=== PATIENT | male | born 1965 | race Caucasian/White ===

== ENCOUNTER 2018-11-14 08:54 | Outpatient (CLI) | payer OTHER ==
[~2018-11-14] VITALS: Ht 172.7 cm; Wt 101.2 kg
[2018-11-14] MEDS ORDERED: ASPI-586 PO (09:23)
[2018-11-14] MEDS ORDERED: IBUP-1780 PO (09:23)
[2018-11-14] MEDS ORDERED: HYDR12.56 PO (09:23)
[2018-11-14] MEDS ORDERED: LOSA100T8 PO (09:23)
[2018-11-14] MEDS ORDERED: ATOR40TA70 PO (09:23)
[2018-11-14] MEDS ORDERED: ACET-93 PO (09:23)
[2018-11-14] MEDS ORDERED: PANT40TA3 PO (09:23)
== END 2018-11-14 09:30 | disposition home or self-care (01) ==
LOC: PREOP 08:54
PROVIDERS: ATTEND Orthopaedic Surgery
DX: Z01.818 Encounter for other preprocedural examination (principal)

== ENCOUNTER 2018-11-16 08:11 | Day surgery (SDC) | payer OTHER ==
--- NOTE | 2018-11-14 06:26 | HISTORY AND PHYSICAL ---
DATE OF SERVICE: ADMISSION HISTORY AND PHYSICAL DATE OF ADMISSION: This will be for outpatient surgery on ___ for right distal biceps repair. HISTORY OF PRESENT ILLNESS: The patient is a 53-year-old right hand dominant gentleman who injured his right elbow while lifting plywood at work. He felt and heard a pop. He reports weakness with supination of the forearm and with elbow flexion. He denies antecedent pain. He denies paresthesias. REVIEW OF SYSTEMS: No chest pain and no shortness of breath and no dysuria. PAST MEDICAL HISTORY: Hypercholesterolemia and sleep apnea. PAST SURGICAL HISTORY: Appendectomy, right ankle replacement, eye, right shoulder free flaps in the bilateral forearms. FAMILY HISTORY: Significant for ischemic heart disease. PRIMARY CARE PROVIDER: In [place]. MEDICATIONS: Aspirin, Protonix, atorvastatin, acetaminophen, ibuprofen, Dilaudid, hydrochlorothiazide, losartan. ALLERGIES: OxyContin. SOCIAL HISTORY: The patient drinks alcohol socially and denies tobacco use. RADIOGRAPHS: Reveal mild degenerative change of his right elbow with no acute changes. PHYSICAL EXAMINATION: GENERAL: The patient is well developed, well nourished, no acute distress. HEENT: Normocephalic, atraumatic. Pupils are equal, round and reactive to light. Oropharynx is clear. NECK: Supple, no lymphadenopathy. LUNGS: Clear to auscultation bilaterally. HEART: Regular rate and rhythm. ABDOMEN: Soft, nontender and nondistended. EXTREMITIES: The right elbow demonstrates a deformity of the distal biceps, which has moved proximally. His biceps is absent from his antecubital fossa. He has marked weakness with forearm supination and moderate weakness with elbow flexion. Sensation is intact distally. He has a well-healed incision on the volar aspect of his right forearm centrally. IMPRESSION: Right distal biceps disruption. PLAN: Right distal biceps repair. We discussed the risks, benefits, options, ramifications and recovery. He understands and wished to proceed. Job ID: [id number] DocumentID: [id number] Dictated Date: 11/03/2018 11:02:39 Bankruptcy Legal Assistant Date: 11/03/2018 11:59:00 Dictated By: JACKIE STERLING MD
[~2018-11-16] VITALS: Ht 172.7 cm; Wt 98.1 kg
[~2018-11-16 08:11] MED LIST: ACET-93 PO; ASPI-586 PO; ATOR40TA70 PO; HYDR12.56 PO; IBUP-1780 PO; LOSA100T8 PO; PANT40TA3 PO
[2018-11-16] MEDS ORDERED: BUPIVACAINE 0.5% 30 ML (SENSORCAINE) VIAL ONE (08:12)
[2018-11-16 08:15] VITALS: BP 132/71
[2018-11-16] MEDS ORDERED: ceFAZolin INJECTION 1,000 MG in NS (IVPB) 50 ML IV ONE (08:30)
[2018-11-16] MEDS ORDERED: LIDOCAINE PF 2% 5 ML (XYLOCAINE) VIAL ONE (08:35)
[2018-11-16] MEDS ORDERED: proPOfol 200 MG/20 ML (DIPRIVAN) VIAL IV ONE ×2 (08:35→09:10)
[2018-11-16] MEDS ORDERED: SEVOFLURANE (ULTANE) 15 ML INHAL SOLN ONE ×6 (08:37→10:23)
[2018-11-16] MEDS ORDERED: MIDAZOLAM 2 MG/2 ML (VERSED) VIAL ONE (08:38)
[2018-11-16] MEDS ORDERED: fentaNYL INJECTION 100 MCG/2 ML AMP ONE ×2 (08:38→09:52)
[2018-11-16] MEDS: LACTATED RINGERS 1,000 ML IV PRN ×2 (08:50→11:00)
--- NOTE | 2018-11-16 08:57 | Progress Note-Pre Operative ---
Pre-Operative Progress Note H&P Reviewed The H&P was reviewed, patient examined and no changes noted. Date Seen by Provider: Nov 16, 2018 Time Seen by Provider: 08:30 Date H&P Reviewed: Nov 16, 2018 Time H&P Reviewed: 08:29 Pre-Operative Diagnosis: right distal biceps tear JACKIE STERLING MD Nov 16, 2018 08:57
--- NOTE | 2018-11-16 08:58 | Progress Note-Post Operative ---
Post-Operative Progess Note Surgeon (s)/Corporate Travel Manager (s) Surgeon JACKIE STERLING MD Corporate Travel Manager: Gallo Bee Pre-Operative Diagnosis right distal biceps tear Post-Operative Diagnosis right distal biceps tear Procedure & Operative Findings Date of Procedure 11/16/18 Procedure Performed/Findings right distal biceps repair Anesthesia Type GETA Estimated Blood Loss Estimated blood loss (mL): minimal Specimens/Packing Specimens Removed none Packing: none JACKIE STERLING MD Nov 16, 2018 08:57
[2018-11-16] MEDS ORDERED: HYDROcodone/APAP 7.5 MG/325 MG (LORTAB, LORCET PLUS) TABLET PO PRN (09:00)
[2018-11-16] MEDS ORDERED: ONDANSETRON 4 MG/2 ML (SDV) Z0FRAN ONE (09:10)
[2018-11-16] MEDS ORDERED: DEXAMETHASONE 10 MG/ML (DECADRON) 1 ML VIAL ONE (09:10)
[2018-11-16] MEDS ORDERED: ONDANSETRON 4 MG/2 ML (SDV) Z0FRAN IVP PRN (10:45)
[2018-11-16] MEDS ORDERED: morphine INJ 10 MG/ML 1ML (SYR OR VIAL) IVP ONE (10:45)
[2018-11-16] MEDS ORDERED: HYDROmorphone 2 MG/ML VIAL (DILAUDID) IV ONE (10:45)
[2018-11-16 11:42] VITALS: BP 147/75
--- NOTE | 2018-11-16 11:54 | Anesthesia-General Post-Op ---
General Patient Condition Mental Status/LOC: Same as Preop Cardiovascular: Satisfactory Nausea/Vomiting: Absent Respiratory: Satisfactory Pain: Controlled Complications: Absent Post Op Complications Complications None Follow Up Care/Instructions Patient Instructions None needed. Anesthesia/Patient Condition Patient Condition Patient is doing well, no complaints, stable vital signs, no apparent adverse anesthesia problems. No complications reported per nursing. ANSELMO VILLA CRNA Nov 16, 2018 11:54
[2018-11-16] MEDS ORDERED: HYDR-3812 PO (12:04)
[2018-11-16 12:12] VITALS: BP 151/75
[2018-11-16 12:39] VITALS: BP 134/89
--- NOTE | 2018-11-16 15:06 | OPERATIVE REPORT ---
DATE OF SERVICE: 11/16/2018 PREOPERATIVE DIAGNOSIS: Right distal biceps tendon tear. POSTOPERATIVE DIAGNOSIS: Right distal biceps tendon tear. PROCEDURE: Right distal biceps tendon repair. SURGEON: Tomi Sterling MD W[employer] DYEING VAT TENDER: Gallo Lipscomb, who assisted throughout the procedure and closed the incision. ANESTHESIA: General endotracheal by Dr. Jones. TOURNIQUET TIME: 58 minutes at 250 mmHg. ESTIMATED BLOOD LOSS: Minimal. DRAINS: None. COMPLICATIONS: None. POSTOPERATIVE PLAN: Splint for 2 weeks with converting to brace for an additional 2 to 4 weeks. The patient was transferred to the recovery room awake and in stable condition. STATEMENT OF MEDICAL NECESSITY: The patient is a 53-year-old right hand dominant gentleman, who sustained a work injury 3 weeks ago. He fell and heard a pop in his arm. On exam, he had marked weakness with elbow flexion and forearm supination. He was tender in his antecubital fossa and his biceps tendon was lax. It was felt that he likely sustained a distal biceps disruption and due to functional impairment and failure to improve, the patient elected to proceed with surgical intervention. DESCRIPTION OF PROCEDURE: After risks and benefits of procedure were discussed and questions were answered, an informed consent was signed and placed on chart, the operative site was confirmed in the preoperative holding area, initialed by the surgeon. The patient was then transferred to the operating room and after adequate levels of general endotracheal anesthetic were obtained, a timeout was called confirming the operative site. The right upper extremity was prepped and draped in the usual sterile fashion. The patient had had a volar forearm free flap as a donor in the past. There had been an incision placed on the volar aspect of the arm. This was utilized for this procedure. The underlying soft tissues were very carefully dissected. There was significant scar noted. The interval between the brachioradialis and pronator teres was developed. The biceps tendon was actually identified in the antecubital fossa and dissected to its [place] attachment site while carefully protecting the lateral antebrachial cutaneous nerve and the branches of the radial nerve, which were identified and carefully protected throughout the procedure and intact at the conclusion of the procedure. After bluntly dissecting to the radial tuberosity, the tendon was inspected. There was a longitudinal split all the way to the musculotendinous junction. The tendon was approximately 90% disrupted from its attachment with scar formation noted. The proximal radius was carefully subperiosteally dissected exposing the radial tuberosity and the tendon was then released on the last 10% that had remained attached. The end was then debrided and a #2 FiberWire loop suture was used to whipstitch proximally over the approximate distal 5 cm of the tendon. This was then passed through the biceps button. Subperiosteal retractors were then very carefully placed in the proximal radius being careful to identify the neurological structures prior to this being careful to remain subperiosteally and exposing the radial tuberosity. Guidewire was passed bicortically, but just through the dorsal cortex. This was then over reamed with a 10 mm reamer through the proximal cortex. The area was irrigated. The guidewire was removed and the biceps button was passed through the far cortex and flipped to the cortical surface. This pulled the tendon into the previously drilled trough. This was then oversewn on itself and tied again. The tendon was closely inspected to ensure this was directly on the bony surface with no adjacent soft tissue structures. The elbow was taken through range of motion and full flexion and extension of the elbow were obtained as well as pronation and supination of the forearm with a stable repair. The wound was copiously irrigated. The tourniquet was deflated for a total time of 58 minutes. Pressure was used for hemostasis. The wound was further irrigated. A 2-0 Vicryl was used to reapproximate the subcutaneous tissue and skin was closed with 4-0 nylon in a running alternating horizontal mattress fashion. Soft dressing and posterior splint were applied and the patient was transferred to the recovery room awake and in stable condition. Job ID: [id number] DocumentID: [id number] Dictated Date: 11/16/2018 10:34:33 Mail Clerk Bills Date: 11/16/2018 15:05:33 Dictated By: TOMI STERLING MD
== END 2018-11-16 12:42 | disposition home or self-care (01) ==
LOC: SDC 08:11
PROVIDERS: ATTEND Orthopaedic Surgery
DX: S46.211A Strain of muscle, fascia and tendon of other parts of biceps, right arm, initial encounter (principal); Z11.2 Encounter for screening for other bacterial diseases; X50.9XXA Other and unspecified overexertion or strenuous movements or postures, initial encounter; Y99.0 Civilian activity done for income or pay; E78.00 Pure hypercholesterolemia, unspecified; G47.33 Obstructive sleep apnea (adult) (pediatric); I10 Essential (primary) hypertension; E78.5 Hyperlipidemia, unspecified; K21.9 Gastro-esophageal reflux disease without esophagitis; Z96.661 Presence of right artificial ankle joint; Z79.899 Other long term (current) drug therapy; Z79.82 Long term (current) use of aspirin; Z82.49 Family history of ischemic heart disease and other diseases of the circulatory system; Z88.5 Allergy status to narcotic agent
CPT/HCPCS: 87081